=== PATIENT | female | born 1980 | race Caucasian/White ===

== ENCOUNTER 2017-01-07 00:43 | Inpatient (IN) | payer MEDICARE, OTHER ==
--- NOTE | ~2017-01-07 | CT96 ---
[facility] A Service [facility] RADIOLOGY TEXT RESULTS PATIENT: RANDY HOLCOMB LOCATION: [facility] 234-01 : 79 UNIT #: [id number] AGE: [address]: Alpa Chahal MD SEX: F ORDER DR: [id number] [facility] [address]. [place], [place] [address] [id number] I MR#: [id number] Acc #: [id number] NAME: RANDY HOLCOMB. : 1980 SEX: F STUDY DATE/TIME: 01/10/2017 8:42 UNIT: [facility] ROOM: [facility] STUDY DESCRIPTION: CT Lumbar Spine W Cont Attending Physician: Alpa Chahal M.D. Ordering Physician: Deidre Islas M.D. Primary Care Physician: Melvin Meadows M.D. MEDICAL IMAGING REPORT This report is preliminary unless electronic signature is present EXAM CT lumbar spine INDICATION Discitis/osteomyelitis. Low back pain. Pyogenic access. Pyelonephritis. TECHNIQUE CT of the lumbar spine with IV contrast. Coronal and sagittal reconstructions were obtained. This CT exam was performed with one or more of the following radiation dose reduction techniques: automatic exposure control, adjustment of mA and/or kV according to patient size, and iterative reconstruction. COMPARISON CT abdomen dated 01/07/2017. FINDINGS Patient had a CT scan on 01/07/2017 showing posterior disc protrusions at L4-5 and L5-S1. The disc protrusions are unchanged. There is some disc space narrowing and sclerosis of the opposing endplates. There is some irregularity of the endplates, however, presence of gas within the disc material suggests this is a degenerative, rather than an infectious process. There is associated facet arthropathy at both levels. There is moderate central canal stenosis at L4-5. Patient has had prior posterior decompression at L4. No acute osseous abnormalities. There is no paraspinous phlegmonous collections. Please refer to the separately dictated report for details on the abdomen and pelvis. [facility] A Service [facility] RADIOLOGY TEXT RESULTS PATIENT: RANDY HOLCOMB LOCATION: A 234-01 : 79 UNIT #: [id number] AGE: [address]: Alpa Chahal MD SEX: F ORDER DR: IMPRESSION 1. Broad-based disc protrusion at L4-5 with a smaller broad-based disc protrusion at L5-S1. These are unchanged from 01/07/2017 exam. There has been posterior decompression from L2-L4. 2. Disc space narrowing at L4-5 and L5-S1 with associated sclerosis of the endplates. This has appearance more typical for advanced degenerative change, rather than a discitis osteomyelitis. There is no associated paraspinous phlegmonous collection to suggest infection. Dictated by... Micah Noaln M.D. THIS IS AN ELECTRONICALLY VERIFIED REPORT Micah Nolan M.D. at 01/11/2017 3:06 PM Marie TD: 01/11/2017 11:56 JOB #: [id number] MEDICAL IMAGING REPORT Page 1 of 1 COPY
--- NOTE | ~2017-01-07 | CT5 ---
[facility] A Service of [facility] & [facility] RADIOLOGY TEXT RESULTS PATIENT: RANDY HOLCOMB LOCATION: A 234-01 : 79 UNIT #: [id number] AGE: [address]: Alpa Chahal MD SEX: F ORDER DR: [id number] [facility] [address] [place], [place] [address] [id number] I MR#: [id number] Acc #: [id number] NAME: RANDY HOLCOMB : 1980 SEX: F STUDY DATE/TIME: 01/07/2017 18:28 UNIT: [facility] ROOM: 234 STUDY DESCRIPTION: CT Abdomen W Cont Attending Physician: Desean Morales Ordering Physician: Aníbal Phan M.D. Primary Care Physician: Melvin Meadows M.D. MEDICAL IMAGING REPORT This report is preliminary unless electronic signature is present EXAM CT abdomen with IV contrast COMPARISON None INDICATIONS 36-year-old female with bilateral flank pain and dysuria for 3 days. Current diagnosis of pyelonephritis. TECHNIQUE This CT exam was performed with one or more of the following radiation dose reduction techniques: automatic control, adjustment of mA and/or kV according to patient size, and iterative reconstruction. FINDINGS Axial CT imaging abdomen and pelvis was performed after IV administration of 100 mL of Isovue-370. Coronal and sagittal reformats were constructed. Bilateral silicone breast implants are incompletely imaged. Visualized components appear intact. Tiny fat-containing umbilical hernia. There is diffuse subcutaneous edema. There is premature degenerative disc disease and degenerative endplate change at L4-L5 and L5-S1 with significant disc height loss at these levels. There appears to be a large posterior disc protrusion at L4-L5 with small posterior disc protrusion L5-S1. Mild degenerative facet disease is also noted at multiple levels of the lower lumbar spine. Thin atelectasis noted in both lower lobes. There is intrahepatic diffuse periportal edema. There is small volume ascites seen throughout the visualized abdomen with fluid surrounding the gallbladder. Gallbladder wall thickness appears normal. Top normal size of the liver with length of 17.8 cm. Spleen, pancreas, adrenal glands are unremarkable. Striated nephrograms are noted in both kidneys, right more so than the left in keeping with history of pyelonephritis. There are also multifocal areas of hypoattenuation within the medulla and cortex of [facility] A Service of [facility] RADIOLOGY TEXT RESULTS PATIENT: RANDY HOLCOMB LOCATION: [facility] : 79 UNIT #: [id number] AGE: [address]: Alpa Chahal MD SEX: F ORDER DR: both kidneys, possibly reflecting a sequelae of pyelonephritis but developing abscess cannot be excluded. No evidence of hydroureter although the distal ureters are excluded from the field of view. There is no hydronephrosis. Abdominal aorta is normal in course and caliber, with patency of its branches. No adenopathy. No pneumoperitoneum. No evidence of bowel obstruction although the bowel is incompletely imaged. The stomach is markedly distended with fluid and ingested debris. IMPRESSION 1. Bilateral striated nephrograms suggestive of acute pyelonephritis. There are multiple areas of hypoattenuation involving the cortex and medulla in both kidneys which may simply reflect ongoing pyelonephritis but developing abscess cannot be excluded. Imaging followup is recommended to ensure resolution as a ill-defined mass lesion cannot be excluded. Howevere, the overall diffuse process favors an ongoing infectious etiology. 2. No evidence of hydronephrosis. 3. Small amount of diffuse ascites throughout the abdomen and pelvis with intrahepatic periportal edema, possibly findings secondary to ongoing pyelonephritis. 4. Premature degenerative disc and endplate change at L4-L5 and L5-S1 with large posterior disc protrusion at L4-L5 and small posterior disc protrusion L5-S1. 5. Free fluid surrounds the gallbladder which appears normal in appearance. An acute cholecystitis is thought unlikely but not entirely excluded. Dictated by... Salvador Horn M.D. THIS IS AN ELECTRONICALLY VERIFIED REPORT Salvador Horn M.D. at 01/12/2017 1:32 PM MILA/corrie TD: 01/07/2017 23:36 JOB #: [id number] MEDICAL IMAGING REPORT Page 1 of 1 COPY
--- NOTE | ~2017-01-07 | CO ---
Unit #: [id number] #: [id number] Patient: RANDY HOLCOMB [id number] [address] [place], [place] [address] [id number] I MR#: [id number] NAME: RANDY HOLCOMB ROOM: 234 Age: 36 Sex: F Admission Date: 01/07/2017 : 1980 Attending Physician: Desean Morales Primary Care Physician: Melvin Meadows M.D. Consultation Date: 01/09/2017 CONSULTATION REPORT REASON FOR CONSULTATION Gram negative sepsis. HISTORY OF PRESENT ILLNESS This is a 36-year-old female, who was in her normal state of health until approximately five days prior to admission when she began with fever, urinary frequency, and discomfort, bilateral flank pain, headache, and chills. The patient was admitted to the emergency room where she was found to have pyuria on her urinalysis. A urine culture for E. Coli and acute pyelonephritis on the CT scan. The patient was given Rocephin and admitted to the hospital. Infectious disease was asked to evaluate as now her blood culture shows one of two with Gram negative rods. In discussion with the patient she reports she continues to have some headache and feels like she has been beaten up. However, the pain with urination has improved. PAST MEDICAL HISTORY Includes: 1. Hepatitis C. 2. IV drug abuse with last use approximately one week ago secondary to her flank pain. 3. A spinal infusion possibly MSSA with epidural involvement requiring a laminectomy and prolonged antibiotics per the H and P on section. ALLERGIES Penicillin, (unknown reaction.) MEDICATIONS The patient is currently on Rocephin tolerating it well for further medications please refer to the patient's MAR. SOCIAL HISTORY The patient lives with her fiance, she has positive tobacco abuse. She denies any alcohol abuse. She does have IV drug use. REVIEW OF SYSTEMS Negative except for as previously mentioned above. PHYSICAL EXAMINATION VITAL SIGNS: Temperature is 98.4 with a T-max of 101.4, pulse is 80, blood pressure is 110/64, and respiratory rate is 17. GENERAL: The patient is in no apparent distress female who is up ad ryder, returning to her bed after using the restroom. Unit #: [id number] #: [id number] Patient: RANDY HOLCOMB HEENT: Her pupils are equal. NECK: Supple. CARDIOVASCULAR: S1 and S2 regular rate and rhythm. PULMONARY: Clear to auscultation bilaterally with no wheezes or rhonchi noted. There is some diminished air entry in the bases. ABDOMEN: Positive bowel sounds, soft. There is bilateral flank tenderness. EXTREMITIES: No clubbing, cyanosis, or edema. DIAGNOSTIC STUDIES LABORATORY: BUN 6, creatinine 0.7, sodium 139, potassium 3.6, chloride 109, CO2 26, bilirubin 0.5, AST 93, ALT is 140, which is improved since her admission, and alkaline phosphatase is 108 which is also improved. Lactic acid was 1.7. White blood cell count is 6.7 which is improved from 15.7 on admission, hemoglobin 10.2, hematocrit 32.6, platelets 179. Urinalysis shows significant pyuria with innumerable white blood cell count, 3+ leukocytes, positive nitrates, and 4+ bacteria. Urine culture is currently growing E. Coli and sensitivity to ceftriaxone. Blood cultures from 01/07 show one of two Gram negative rods, ID pending 01/09 blood cultures are currently pending. IMAGING: CT scan, please see full report for complete details, in summary, it shows bilateral dilated nephrogram suggestive of acute pyelonephritis, multiple areas of hypoattenuation, with either ongoing pyelo- vs developing abscess not excluded, no evidence of hydronephrosis, small amount of ascites, premature degenerative disk and endplate changes at L4-5 and L5-S1 with disc protrusion. Chest x-ray shows a PICC line in appropriate position. IMPRESSION This is a 36-year-old female, with history of IV drug use and hepatitis C, with approximately five day history of fever, myalgia, bilateral flank pain, and urinary tract infection symptoms. The patient's CT was consistent with acute pyelo- with possible developing abscess and blood cultures also show Gram negative rods as well as E. Coli in the urine. At this time, we will treat as Gram negative sepsis secondary to urinary tract infection with acute pyelonephritis and may need to exclude any CT spine involvement at L4-5 and L5-S1. At this time agree with ceftriaxone, will give gentamicin x1, will follow up on repeat blood cultures and will discuss with Dr. Chaparro Hopper regarding possible need for dedicated spine films for further evaluation of the lumbosacral spine. The patient does have a history of IV drug abuse and will try to avoid IV antibiotics if possible at discharge, and further recommendations to follow. Thank you for allow us to participate in the care of this patient and further recommendations to follow pending the patient's clinical course. Dictated by... Nataliya Alvarez A.P.R.N. [facility] Unit #: [id number] #: [id number] Patient: RANDY HOLCOMB TD: 01/09/2017 15:55 JOB #: [id number] CONSULTATION REPORT Page 1 of 1 X X CONSULTATION REPORT
--- NOTE | ~2017-01-07 | CT6 ---
[facility] A Service of [facility] RADIOLOGY TEXT RESULTS PATIENT: RANDY HOLCOMB LOCATION: A 234-01 : 79 UNIT #: [id number] AGE: [address]: Alpa Chahal MD SEX: F ORDER DR: [id number] [facility] [address] [place], [place] [address] [id number] I MR#: [id number] Acc #: [id number] NAME: RANDY HOLCOMB : 1980 SEX: F STUDY DATE/TIME: 01/10/2017 12:48 UNIT: [facility] ROOM: [facility] STUDY DESCRIPTION: CT Abdomen WWo Cont Attending Physician: Alpa Chahal M.D. Ordering Physician: Bruce Live M.D. Primary Care Physician: Melvin Meadows M.D. MEDICAL IMAGING REPORT This report is preliminary unless electronic signature is present EXAM CT abdomen INDICATION Pyelonephritis. Hepatitis C. Periportal edema. TECHNIQUE CT of the abdomen with and without IV contrast (100 mL Isovue-370 IV contrast). Coronal and sagittal reconstructions were obtained. This CT exam was performed with one or more of the following radiation dose reduction techniques: Automatic exposure control, adjustment of mA and/or kV according to patient size, and iterative reconstruction. COMPARISON CT abdomen and pelvis dated 01/07/2017. FINDINGS There is a small right pleural effusion. This is new from the prior study. The liver is morphologically normal. There is a small 2 mm nonobstructing calculus in the lower pole of the left kidney. There is no hydronephrosis. There is abnormal nephrograms bilaterally. This is consistent with the previous diagnosis of pyelonephritis. The overall enhancement is fairly similar to the prior study. No perinephric fluid collection to suggest an abscess. There is mild gallbladder wall thickening, however, this has improved since the prior study. The degree of periportal edema is also essentially resolved. Pancreas, spleen, and adrenal glands within normal. Bowel is not dilated. No acute osseous abnormalities. IMPRESSION [facility] A Service of [facility] RADIOLOGY TEXT RESULTS PATIENT: RANDY HOLCOMB LOCATION: [facility] 234-01 : [birth year] UNIT #: [id number] AGE: [address]: Alpa Chahal MD SEX: F ORDER DR: 1. Resolved periportal edema. 2. Mild gallbladder wall thickening likely relates to intrinsic liver disease. No gallbladder distension. 3. Abnormal striated nephrogram consistent with pyelonephritis. This is similar to the recent 01/07/2017 exam. Dictated by... Micah Nolan M.D. THIS IS AN ELECTRONICALLY VERIFIED REPORT Micah Nolan M.D. at 01/11/2017 10:51 AM TENA/pool TD: 01/11/2017 09:36 JOB #: [id number] MEDICAL IMAGING REPORT Page 1 of 1 COPY
--- NOTE | ~2017-01-07 | DS ---
Unit #: [id number] #: [id number] Patient: RANDY HOLCOMB [id number] [address] [address] [id number] I MR#: [id number] NAME: RANDY HOLCOMB. ROOM: 234 Age: 36 Sex: F Admission Date: 01/07/2017 : 1980 Discharge Date: 01/11/2017 Attending Physician: Alpa Chahal M.D. Primary Care Physician: Melvin Meadows M.D. DISCHARGE SUMMARY DISCHARGE DIAGNOSES 1. Escherichia coli sepsis. 2. Acute pyelonephritis. 3. Hepatitis C with transaminitis. 4. History of methicillin-sensitive Staphylococcus aureus spine infection with CT scan negative during this hospitalization course. 5. History of smoking. CONSULTATIONS 1. Dr. Hopper. 2. Dr. Russell. PROCEDURES None. DIAGNOSTIC STUDIES LABORATORY: Blood cultures on January 07 showed E. coli. Urine culture is growing E. coli. IMAGING: CT of the lumbar spine shows broad-based disc protrusion at L4-L5 and L5-S1. These findings show degenerative changes rather than osteomyelitis. No infection. ALLERGIES Penicillin. DISCHARGE MEDICATIONS 1. Tylenol 325 p.o. q.6 p.r.n. pain [id number]. 2. Nicotine 14 mg transdermal daily. 3. Levaquin 750 p.o. daily, stop date January 20, 2017. HOSPITAL COURSE A 36-year-old admitted because of abdominal pain. E. coli sepsis from acute pyelonephritis. Blood cultures are growing E. coli. Repeat cultures are negative. Patient was seen by Infectious Disease and Urology. Patient received broad spectrum antibiotics during the hospital course. Patient will be discharged on Levaquin to take at home. Acute pyelonephritis with E. coli. Continue with Levaquin at home. History of spine infection. A CT scan of the lumbar spine here did not show any osteomyelitis or any other infection. Unit #: [id number] #: [id number] Patient: RANDY HOLCOMB DISPOSITION Discharge home. FOLLOWUP With family physician in one week's time. Dictated by... Toy Mariscal TD: 01/11/2017 20:41 JOB #: [id number] DISCHARGE SUMMARY Page 1 of 1 X Alpa Chahal MD DISCHARGE SUMMARY
--- NOTE | ~2017-01-07 | CR72 ---
[facility] A Service of [facility] RADIOLOGY TEXT RESULTS PATIENT: RANDY HOLCOMB LOCATION: [facility] [address] : [birth year] UNIT #: [id number] AGE: [address]: JAN NEELYJ V SEX: F ORDER DR: [id number] [facility] [address] [place], [place] [address] [id number] I MR#: [id number] Acc #: [id number] NAME: RANDY HOLCOMB : 1980 SEX: F STUDY DATE/TIME: 01/09/2017 2:23 UNIT: [facility] ROOM: [facility] STUDY DESCRIPTION: CR Chest Single View Portable Ordering Physician: [facility] Primary Care Physician: Melvin Meadows M.D. MEDICAL IMAGING REPORT This report is preliminary unless electronic signature is present EXAM Portable chest INDICATIONS PICC line placement. Evaluate positioning. TECHNIQUE Frontal view chest. COMPARISON STUDIES 08/05/2015. FINDINGS Distal tip of right approach PICC line in the mid-SVC. No pneumothorax. No dense consolidation. IMPRESSION Right approach PICC line mid-SVC. No pneumothorax. Dictated by... Franc Bray M.D. THIS IS AN ELECTRONICALLY VERIFIED REPORT Franc Bray M.D. at 01/09/2017 10:23 PM EED/pcl TD: 01/09/2017 09:20 JOB #: [id number] MEDICAL IMAGING REPORT Page 1 of 1 COPY
--- NOTE | ~2017-01-07 | HP ---
Unit #: [id number] #: [id number] Patient: RANDY HOLCOMB [id number] [address] [address] [id number] I MR#: [id number] NAME: RANDY HOLCOMB. ROOM: 234 Age: 36 Sex: F Admission Date: 01/07/2017 : 1980 Attending Physician: Aníbal Phan M.D. Primary Care Physician: Melvin Meadows M.D. HISTORY AND PHYSICAL ADDENDUM Ruvow-aa-htvs urine beta HCG negative in the emergency department. Dictated by Deidre Islas M.D. AML/gz TD: 01/07/2017 08:00 JOB #: [id number] HISTORY AND PHYSICAL Page 1 of 1 X Deidre Islas MD HISTORY AND PHYSICAL
--- NOTE | ~2017-01-07 | HP ---
Unit #: [id number] #: [id number] Patient: RANDY HOLCOMB [id number] [address] [place], [place] [address] [id number] I MR#: [id number] NAME: RANDY HOLCOMB. ROOM: 234 Age: 36 Sex: F Admission Date: 01/07/2017 : 1980 Attending Physician: Aníbal Phan M.D. Primary Care Physician: Melvin Meadows M.D. HISTORY AND PHYSICAL CHIEF COMPLAINT Pyelonephritis. HISTORY OF PRESENT ILLNESS This pleasant, 36-year-old female with hepatitis C is admitted for pyelonephritis. The patient was well until five days prior to admission when she developed dysuria, urinary frequency, bilateral lower flank pain with fevers, myalgia, headache, nausea and chills. The patient presented to this emergency department early this morning where her urine shows significant pyuria. She was given a dose of morphine, Zofran, Tylenol, Pyridium, Rocephin and bolused with a liter of saline. PAST MEDICAL HISTORY 1. Hepatitis C. 2. What sounds to be MSSA spine infection following an epidural requiring laminectomy and prolonged antibiotics. 3. . SOCIAL HISTORY The patient lives with her fiance. She smokes about a pack per day of tobacco. She does not drink alcohol. Previously, did abuse drugs in the past but has been clean and sober after treatment at [facility]. FAMILY HISTORY Negative for kidney disease. ALLERGIES Penicillin causing an unknown reaction. HOME MEDICATIONS Ibuprofen. REVIEW OF SYSTEMS Notable for nausea, fevers, sweats, chills, headaches, myalgias, dysuria, frequency, lower flank pain, hepatitis C, above-mentioned surgeries, tobacco use. All other systems were reviewed and are otherwise negative. PHYSICAL EXAMINATION GENERAL APPEARANCE: A pleasant, 36-year-old female who currently is in no acute distress. VITAL SIGNS: Temperature 99.9. Pulse 121. Respirations 19. Blood pressure 129/85. O2 saturation is 100% on room air. Unit #: [id number] #: [id number] Patient: RANDY HOLCOMB HEENT: Eyes: PERRLA. Extraocular muscles are intact. Pharynx is benign. NECK: Supple without adenopathy or thyromegaly. CHEST: Clear. BACK: Lower flank percussion tenderness. CARDIAC: Normal S1, S2 without definite murmur. ABDOMEN: Bowel sounds are present. No hepatosplenomegaly, tenderness or masses. EXTREMITIES: Without clubbing, cyanosis or edema. Pedal pulses are present. No splinter hemorrhage is noted over the fingernail beds. NEUROLOGIC: The patient is awake, alert, oriented. Cranial nerves are intact. Equal strength throughout. DIAGNOSTIC STUDIES LABORATORY: Hematocrit 40.1, WBC count 15.7, normal platelet count, 2 bands noted. SMA-12: Glucose 127, sodium 133, calcium 8.2, albumin 3.3, AST 146, ALT 243, alkaline phosphatase 125, normal lactic acid. Urinalysis positive leukocyte esterase, nitrites, protein, blood with innumerable white cells and red cells, 4+ bacteria, only occasional squamous cell. ASSESSMENT 1. Pyelonephritis. 2. Hepatitis C with transaminitis. 3. History of what sounds to be methicillin-sensitive Staph. spine infection 2009 after an epidural requiring lumbar laminectomy and prolonged antibiotics. 4. Tobacco use. PLAN 1. Rocephin pending cultures. 2. IV fluids and supportive treatment. 3. Nicoderm patch. 4. The patient is young and ambulatory. No need for DVT prophylaxis. Dictated by Deidre Islas M.D. AML/bd TD: 01/07/2017 07:50 JOB #: [id number] HISTORY AND PHYSICAL Page 1 of 1 X Deidre Islas MD X HISTORY AND PHYSICAL
[~2017-01-07 00:43] MED LIST: ANTIBIOTIC IV; KEFLEX PO
[2017-01-07 02:04] LABS: URINE SOURCE CLEAN CATCH
[2017-01-07 02:08] LABS: URINE APPEARANCE TURBID; URINE BLOOD 3+ (NEG); URINE COLOR DK YELLOW; URINE GLUCOSE NEG (NEG); URINE KETONE NEG (NEG); URINE LEUKOCYTE ESTERASE 3+ (NEG); URINE NITRATE POS (NEG); URINE PROTEIN 2+ (NEG); URINE SPECIFIC GRAVITY 1.016 (1.003-1.035)
[2017-01-07 02:11] LABS: CULTURE INDICATED? YES; URBCS1 AUWI INNUM /[HPF] (0-2); URINE BACTERIA AUWI 4+ (NEGATIVE); URINE SQUAMOUS EPITHELIAL CELL OCC /[HPF]; UWBCS1 AUWI INNUM (0-5)
[2017-01-07 02:24] LABS: BASOPHIL# 0.1 X10e3 (0-0.3); BASOPHIL% 0.3 % (0-2.5); DIFF IND YES; EOSINOPHIL% 0.3 % (0.0-7.0); HEMATOCRIT 40.1 % (35.0-45.0); HEMOGLOBIN 13.4 gm/dL (12.0-16.0); LYMPHOCYTE# 0.5 X10e3 (1.0-3.5); LYMPHOCYTE% 3.3 % (17.0-45.0); MEAN CELL VOLUME 91.9 FL (83-96); MEAN CORPUSCULAR HEMOGLOBIN 30.6 PG (28-34); MEAN CORPUSCULAR HGB CONC 33.3 g/dL (30-36); MEAN PLATELET VOLUME 8.6 FL (6.5-11.5); MONOCYTE# 1.8 X10e3 (0-1.0); MONOCYTE% 11.6 % (3.0-12.0); NEUTROPHIL# 13.3 X10e3 (1.5-7.1); NEUTROPHIL% 84.5 % (40-75); PLATELET COUNT 197 X10e3 (140-420); RED BLOOD COUNT 4.36 X10e (3.90-5.30); RED CELL DISTRIBUTION WIDTH 12.5 % (11.0-15.5); WHITE BLOOD COUNT 15.7 X10e3 (4.0-10.5)
[2017-01-07 02:24] LABS: URINE BILIRUBIN NEG (NEG)
[2017-01-07 02:32] LABS: ALBUMIN SERUM 3.3 g/dL (3.5-5.0); BILIRUBIN, DIRECT 0.6 mg/dL (0.0-0.2); BILIRUBIN,INDIRECT 1.1 mg/dL (0.0-0.9); BILIRUBIN,TOTAL 1.7 mg/dL (0.2-2.0); BUN/CREATININE RATIO 12.5; CALCIUM SERUM 8.2 mg/dL (8.4-10.2); CREATININE SERUM 0.8 mg/dL (0.6-1.4); GLOM FILT RATE Estimated 94.3 mL/min (>60); PROTEIN TOTAL SERUM 7.1 g/dL (6.0-8.3)
[2017-01-07 02:46] LABS: PLATELET ESTIMATE DECREASED (NORMAL); RBC NORMAL YES
[2017-01-09 06:05] LABS: HEMATOCRIT 30.6 % (35.0-45.0); HEMOGLOBIN 10.2 gm/dL (12.0-16.0); MEAN CELL VOLUME 92.8 FL (83-96); MEAN CORPUSCULAR HEMOGLOBIN 30.9 PG (28-34); MEAN CORPUSCULAR HGB CONC 33.3 g/dL (30-36); MEAN PLATELET VOLUME 8.5 FL (6.5-11.5); RED BLOOD COUNT 3.29 X10e (3.90-5.30); RED CELL DISTRIBUTION WIDTH 12.6 % (11.0-15.5); WHITE BLOOD COUNT 6.7 X10e3 (4.0-10.5)
[2017-01-09 06:36] LABS: ALBUMIN SERUM 2.4 g/dL (3.5-5.0); BILIRUBIN,TOTAL 0.5 mg/dL (0.2-2.0); BUN/CREATININE RATIO 8.57; CALCIUM SERUM 7.8 mg/dL (8.4-10.2); CREATININE SERUM 0.7 mg/dL (0.6-1.4); GLOM FILT RATE Estimated 110.7 mL/min (>60); POTASSIUM 3.6 mmol/L (3.5-5.1); PROTEIN TOTAL SERUM 5.4 g/dL (6.0-8.3)
[2017-01-10 07:20] LABS: HEMATOCRIT 31.3 % (35.0-45.0); HEMOGLOBIN 10.5 gm/dL (12.0-16.0); MEAN CELL VOLUME 91.4 FL (83-96); MEAN CORPUSCULAR HEMOGLOBIN 30.7 PG (28-34); MEAN CORPUSCULAR HGB CONC 33.6 g/dL (30-36); MEAN PLATELET VOLUME 8.2 FL (6.5-11.5); RED BLOOD COUNT 3.42 X10e (3.90-5.30); RED CELL DISTRIBUTION WIDTH 12.5 % (11.0-15.5); WHITE BLOOD COUNT 7.4 X10e3 (4.0-10.5)
[2017-01-10 07:51] LABS: ALBUMIN SERUM 2.5 g/dL (3.5-5.0); BILIRUBIN,TOTAL 0.5 mg/dL (0.2-2.0); BUN/CREATININE RATIO 8.75; CALCIUM SERUM 8.5 mg/dL (8.4-10.2); CREATININE SERUM 0.8 mg/dL (0.6-1.4); GLOM FILT RATE Estimated 94.3 mL/min (>60); POTASSIUM 3.4 mmol/L (3.5-5.1); PROTEIN TOTAL SERUM 5.9 g/dL (6.0-8.3)
[2017-01-11 06:56] LABS: HEMATOCRIT 34.9 % (35.0-45.0); HEMOGLOBIN 11.6 gm/dL (12.0-16.0); MEAN CELL VOLUME 91.8 FL (83-96); MEAN CORPUSCULAR HEMOGLOBIN 30.6 PG (28-34); MEAN CORPUSCULAR HGB CONC 33.4 g/dL (30-36); MEAN PLATELET VOLUME 7.9 FL (6.5-11.5); RED BLOOD COUNT 3.8 X10e (3.90-5.30); RED CELL DISTRIBUTION WIDTH 12.5 % (11.0-15.5); WHITE BLOOD COUNT 7.8 X10e3 (4.0-10.5)
[2017-01-11 07:24] LABS: BUN/CREATININE RATIO 11.25; CALCIUM SERUM 8.2 mg/dL (8.4-10.2); CREATININE SERUM 0.8 mg/dL (0.6-1.4); GLOM FILT RATE Estimated 94.3 mL/min (>60); POTASSIUM 3.9 mmol/L (3.5-5.1)
[2017-01-11] MEDS ORDERED: ACETAMINOPHEN325 MG PO (14:13)
[2017-01-11] MEDS ORDERED: NICOTINE PATCH1 EAC1 TD (14:14)
[2017-01-11] MEDS ORDERED: LEVAQUIN750 MG PO (14:15)
== END 2017-01-11 18:04 | disposition home or self-care (01) | DRG 872 ==
LOC: CED 00:43 → C2A 04:30 → CEDOF 04:30 → CED 04:37 → CEDOF 04:37 → C2A 07:34 → CEDOF 07:34 → C2A 07:40
PROVIDERS: Emergency Medicine; Internal Medicine; Nurse Practitioner Family
PROC: 02HV33Z Insertion of Infusion Device into Superior Vena Cava, Percutaneous Approach (ICD-10-PCS; principal; 2017-01-09)
DX: A41.51 Sepsis due to Escherichia coli [E. coli] (principal); N10 Acute pyelonephritis; B96.20 Unspecified Escherichia coli [E. coli] as the cause of diseases classified elsewhere; B19.20 Unspecified viral hepatitis C without hepatic coma; R74.0 Nonspecific elevation of levels of transaminase and lactic acid dehydrogenase [LDH]; K59.00 Constipation, unspecified; Z88.0 Allergy status to penicillin; Z87.891 Personal history of nicotine dependence
CPT/HCPCS: 36415; 71010; 72132; 74160; 74170; 80048; 80053; 80076; 81003; 83605; 84703; 85025; 85027; 85652; 86140; 87040; 87086; 87088; 87186; 96365; 96375; 99285; J0696; J1580; J2270; J2405; Q9967